=== PATIENT | female | born 2000 | race Hispanic/Latino ===

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

== ENCOUNTER 2023-10-12 14:36 | Emergency (ER) | payer OTHER, SELFPAY ==
[2023-10-12] MEDS ORDERED: Ibuprofen 200 MG TAB ONE (16:10)
[2023-10-12] MEDS ORDERED: Acetaminophen 500 MG TAB ONE (16:10)
[2023-10-12 17:01] LABS: SARS-CoV-2 NAA Rapid Test Not Detected (NotDetected)
== END 2023-10-12 18:04 | disposition home or self-care (01) ==
LOC: ERS 14:36
DX: B34.9 Viral infection, unspecified (principal)
CPT/HCPCS: 99283